=== PATIENT | female | born 1990 | race Caucasian/White ===

== ENCOUNTER 2017-01-14 10:05 | Observation (INO) | payer OTHER ==
[2017-01-14] MEDS ORDERED: Lidocaine 1% w/Epinephrine 1:200K 30 ML VIAL ONE (10:26)
[2017-01-14] MEDS ORDERED: Lorazepam 2 MG/ML VIAL ONE (11:49)
[2017-01-14] MEDS ORDERED: Acetaminophen 500 MG TAB ONE (11:50)
[2017-01-14] MEDS ORDERED: Metoclopramide HCl 10 MG/2 ML VIAL ONE (11:50)
[2017-01-14 11:57] LABS: #Basophils 0.1 thou/uL (0.0-0.2); #Eosinphils 0.1 thou/uL (0.0-0.7); #Lymphocytes 1.7 thou/uL (1.20-3.40); #Monocytes 0.5 thou/uL (0.11-0.59); #Neutrophils 6.7 thou/uL (1.40-6.50); %Basophils 0.6 % (0.0-1.0); %Eosinophils 0.8 % (0.0-10.0); %Lymphocytes 18.5 % (21.0-51.0); %Monocytes 5.7 % (0.0-10.0); Hematocrit 38.5 % (36.0-47.0); Mean Platelet Volume 6.6 fL (7.4-10.4)
[2017-01-14 12:10] LABS: CK (CPK) 296 U/L (29-168)
[2017-01-14 12:11] LABS: ALT (SGPT) 27 U/L (8-55); AST (SGOT) 38 U/L (5-34); Acetaminophen Less than 6.0 mcg/mL (10.0-30.0); Alkaline Phosphatase 92 U/L (40-150); Anion Gap 21 mmol/L (10-20); BUN (Urea Nitrogen) 8 mg/dL (7.0-18.7); Bilirubin, Total 0.7 mg/dL (0.2-1.2); Calc. Creatinine Clearance 0 mL/min (70-130); Calcium 8.7 mg/dL (7.8-10.44); Carbon Dioxide 19 mmol/L (22-29); Chloride 100 mmol/L (98-107); Estimated GFR-MDRD Greater than 90; Globulin 2.8 g/dL (2.4-3.5); Protein, Total 6.9 g/dL (6.0-8.3); Salicylate Less than 8.0 mg/dL (15.0-30.0)
[2017-01-14] MEDS ORDERED: Potassium Chloride 20 MEQ TAB ONE (12:41)
[2017-01-14 12:48] LABS: Bilirubin Negative (Negative); Blood, Urine Moderate (Negative); Glucose, Urine (Dipstick) Negative (Negative); Ketone, Urine 15 mg/dL (Negative); Nitrite Negative (Negative); Protein, Urine (Dipstick) Negative (Neg-Trace); Urobilinogen 0.2 mg/dL (0.2-1.0)
[2017-01-14 13:17] LABS: Bacteria/HPF None Seen HPF (None Seen); Hyaline Casts/LPF 0-3 HYALINE CAST LPF (0-3 Hyaline); Squamous Epithelial None Seen HPF (0-3); WBC/HPF 0-3 HPF (0-3)
[2017-01-14 13:28] LABS: Amphetamine Not Detected (NotDetected); Methadone Not Detected (NotDetected); Methamphetamine Not Detected (NotDetected)
[2017-01-14] MEDS ORDERED: Ondansetron HCl/PF 4 MG/2 ML Vial IVP PRN (14:29)
[2017-01-14] MEDS ORDERED: Sodium Chloride 0.65% Nasal 44 ML BOT EA NARE PRN (14:29)
[2017-01-14] MEDS ORDERED: Loperamide HCl 2 MG CAP PO PRN (14:29)
[2017-01-14] MEDS ORDERED: Zolpidem Tartrate 5 MG TAB PO PRN (14:29)
[2017-01-14] MEDS ORDERED: Loratadine 10 MG TAB PO PRN (14:29)
[2017-01-14] MEDS ORDERED: Diabetic Tussin 200 MG/10 ML UDCUP PO PRN (14:29)
[2017-01-14] MEDS ORDERED: Eucerin (Mineral Oil/Petrolatum,White) 30 gm Jar TOP PRN (14:29)
[2017-01-14] MEDS ORDERED: HYDROcodone/Acetaminophen 5/325 mg Tablet PO PRN (14:29)
[2017-01-14] MEDS ORDERED: Mag-Al 1200 mg/1200 mg/30 ML UDCUP PO PRN (14:29)
[2017-01-14] MEDS ORDERED: Acetaminophen 325 MG TAB PO PRN (14:29)
[2017-01-14] MEDS ORDERED: Senokot 8.6 MG TAB PO PRN (14:29)
[2017-01-14] MEDS ORDERED: Ondansetron ODT 4 MG TAB PO PRN (14:29)
[2017-01-14] MEDS ORDERED: Milk Of Magnesia 30 ML UDCUP PO PRN (14:29)
--- NOTE | 2017-01-14 14:37 | HP ---
PRIMARY CARE PHYSICIAN: City call admission. REASON FOR ADMISSION: Hypokalemia and suicidal ideation. HISTORY OF PRESENT ILLNESS: A 26-year-old female who has underlying anxiety and depression who had a lot of stress and she is feeling anxiety and depression. She was not able to handle her stress and that is why she went to bathroom to make some stress relief with cuts. Patient reports that she had new blade and she cut too deep in her right wrist and this was done because of to get relief from the stress, but she was feeling depressed. She was also feeling suicidal when I interviewed her. She was emotional and crying. The patient does report that this is not the first time she did. She has a history of cutting. Patient reports that she has history of seizure and her seizure was about few weeks ago when she was at work. The patient also had MRI done at [address] and she was supposed to see Dr. Barbara Najera, but she has not made any appointment yet. Patient is taking clonazepam and gabapentin. Initially, she was given instruction to take Keppra, but that medicine was making her side effects and that is why she stopped taking Keppra. When she presented to emergency room, she was emotionally labile, crying. She was complaining of headache, dizziness. She was feeling paraesthesia in hand and extremities. The patient was brought to ER by police for medical clearance to go to psych treatment, but ER physician was not able to clear her to go to psych treatment and that is why she decided to keep in hospital for overnight. In the emergency room, workup showed hypokalemia, elevated total CK. At this point, the patient is being admitted to telemetry floor. PAST MEDICAL HISTORY: History of seizure disorder as per report. The patient had EEG in 2016, which was normal. The patient also had MRI done on an outpatient basis at [address] and she is supposed to see neurologist, but she has not made any appointment yet. PAST SURGICAL HISTORY: Reviewed and negative. PAST PSYCHIATRIC HISTORY: Anxiety, depression. The patient does have a history of inpatient psychiatric admission when she was 16. Patient denies any work related stress or family related stress. SOCIAL HISTORY: Patient is smoking 4-5 cigarettes daily. She also drinks alcohol socially. She also abuses marijuana periodically. FAMILY HISTORY: No strong family history of premature coronary artery disease, stroke or cancer. ALLERGIES: No known drug allergies. CURRENT MEDICATIONS: Clonazepam 1 mg b.i.d., gabapentin 300 mg 3 times daily. REVIEW OF SYSTEMS: The following complete review of systems was negative, unless otherwise mentioned in the HPI or below: Constitutional: Weight loss or gain, ability to conduct usual activities. Skin: Rash, itching. Eyes: Double vision, pain. ENT/Mouth: Nose bleeding, neck stiffness, pain, tenderness. Cardiovascular: Palpitations, dyspnea on exertion, orthopnea. Respiratory: Shortness of breath, wheezing, cough, hemoptysis, fever or night sweats. Gastrointestinal: Poor appetite, abdominal pain, heartburn, nausea, vomiting, constipation, or diarrhea. Genitourinary: Urgency, frequency, dysuria, nocturia. Musculoskeletal: Pain, swelling. Neurologic/Psychiatric: Anxiety, depression. Allergy/Immunologic: Skin rash, bleeding tendency. Please see my HPI for pertinent positive and negative. All other review of systems reviewed and negative except as mentioned in the HPI. EMERGENCY ROOM COURSE: The patient was given potassium chloride 40 mEq p.o., magnesium 1 gram, Reglan 10 mg, Tylenol 1 gram, Ativan 1 mg IV push and IV fluid. PHYSICAL EXAMINATION: VITAL SIGNS: Currently, blood pressure 124/90, pulse 136, respiratory rate 18, temperature 98.2, saturation 97% on room air, weight 42.2 kilograms. GENERAL: Patient is currently emotionally labile, but no obvious acute distress. HEAD: Normocephalic, atraumatic. EYES: Pupils round, reactive to light. Extraocular muscle intact. ENT: Oropharynx within normal limits. Moist mucous membranes. No oral lesions. No pharyngeal erythema, no exudate. NECK: Supple. Range of motion is normal. No meningeal signs of irritation. LUNGS: Clear to auscultation without any rhonchi or rales. CARDIAC: S1, S2 regular, tachycardia, no murmur, no gallop, no rub. ABDOMEN: Soft, bowel sounds present, nontender, nondistended. No organomegaly , no mass, no suprapubic tenderness. BACK: Examination unremarkable, no CVA tenderness. EXTREMITIES: Upper extremity, patient does have a wrist cut laceration about 2.6 to 4 cm in length through the dermis. No active bleeding noted and it is covered with dressing. Lower extremity, no edema. Good peripheral pulsation. NEUROLOGIC: The patient is alert, oriented x3. Cranial nerves II-XII intact. Motor and sensation within normal limits. No focal neurological deficit noted. SKIN: No skin rash. PSYCHIATRIC: Anxious affect. SIGNIFICANT LABORATORY DATA AND IMAGIN. CBC: WBC 9.0, hemoglobin 13.1, platelet 264. 2. BMP: Sodium 137, potassium 2.5, chloride 100, carbon dioxide 19, anion gap 21, BUN 8, creatinine 0.77, glucose 125, calcium 8.7. 3. LFT: AST 38, ALT 27, alkaline phosphorus 792, albumin 4.1, CK 296. TSH 1.51. Urinalysis, blood moderate. Urine drug screen positive for cannabinoids. Serum drug screen, alcohol level 25. 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 ASSESSMENT AND PLAN/IMPRESSION: 1. Wrist laceration. This patient tried to cut her wrist with a blade to relieve her stress. She has underlying anxiety and depression. This patient also has previous history of cutting wrist. At this point, this patient will need close monitoring. Patient will need sitter. We will give suicidal precaution. When the patient is medically stable, at that time, patient will need psychiatric facility. 2. Suicidal ideation. We will keep suicide precautions. [facility] will be consulted upon stabilization medically and eventually she will need inpatient psychiatric treatment. 3. Hypokalemia. The patient has received potassium 40 mEq p.o. in the emergency room. We will check magnesium and phosphorus. Patient is also getting magnesium sulfate 1 gram. We will repeat basic metabolic panel tomorrow. We will also give her IV fluid with potassium in it. 4. Sinus tachycardia likely due to anxiety. Underlying dehydration is also a possibility. We will continue with IV fluid. 5. Cannabis abuse. Patient is given healthy lifestyle measure education. The patient is also given education to avoid smoking, alcohol abuse, and cannabinoid abuse. 6. Anion gap acidosis. Patient will get IV fluid and we will repeat basic metabolic panel tomorrow. 7. Mild elevation of CK (rhabdomyolysis). We will continue with IV fluid and will repeat total CK tomorrow. 8. Microscopic hematuria, likely related with elevated total CK. 9. AST more than ALT, that is also related with her alcohol use. 10. Anxiety and depression. The patient will continue clonazepam 1 mg twice daily, gabapentin 300 mg three times daily. 11. History of seizure disorder, presumed. At this point, patient will follow up with Neurology as an outpatient basis. 12. Deep venous thrombosis prophylaxis not needed because we are expecting discharge in 24 hours. 13. Gastrointestinal prophylaxis, Pepcid 20 mg p.o. b.i.d. 14. Code status: The patient is FULL CODE. Patient does not have any surrogate decision maker. DISPOSITION AND PLAN: Based on clinical course. MTDD
[2017-01-14] MEDS: D5 0.9% NS w/ 20 mEq KCl 1,000 ML IV SCH ×2 (14:57→16:26)
[2017-01-14] MEDS ORDERED: Gabapentin 300 MG CAP PO SCH (15:00)
[2017-01-14 16:09] VITALS: BMI 22.0
[2017-01-14] MEDS: CLONAZEPAM 1 MG PO PRN (18:17)
[2017-01-14] MEDS: Gabapentin 300 MG CAP PO SCH (20:43)
[2017-01-14] MEDS: Famotidine 20 MG TAB PO SCH (20:43)
[2017-01-14] MEDS ORDERED: clonazePAM 1 MG TAB PO SCH (21:00)
[2017-01-14] MEDS: Lorazepam 1 MG TAB PO PRN (23:14)
[2017-01-15 00:59] LABS: Troponin I Less than 0.010 ng/mL (< 0.028)
[2017-01-15] MEDS: CLONAZEPAM 1 MG PO PRN ×2 (01:21→10:39)
[2017-01-15] MEDS: D5 0.9% NS w/ 20 mEq KCl 1,000 ML IV SCH ×2 (02:14→10:23)
[2017-01-15 05:43] LABS: Anion Gap 13 mmol/L (10-20); BUN (Urea Nitrogen) 5 mg/dL (7.0-18.7); CK (CPK) 229 U/L (29-168); Calc. Creatinine Clearance 100 mL/min (70-130); Calcium 7.9 mg/dL (7.8-10.44); Carbon Dioxide 19 mmol/L (22-29); Chloride 113 mmol/L (98-107); Estimated GFR-MDRD Greater than 90
[2017-01-15 06:04] LABS: Band 1 % (5-11); Hematocrit 32.3 % (36.0-47.0); Mean Platelet Volume 6.4 fL (7.4-10.4); Neutrophil 28 % (42-75); Red Blood Cell (RBC) Count 3.34 mill/uL (4.20-5.40); White Blood Cell (WBC) Count 6.9 thou/uL (4.8-10.8)
[2017-01-15] MEDS: Lorazepam 1 MG TAB PO PRN ×2 (07:39→14:09)
[2017-01-15] MEDS: Gabapentin 300 MG CAP PO SCH (09:03)
[2017-01-15] MEDS: Famotidine 20 MG TAB PO SCH (09:05)
[2017-01-15] MEDS ORDERED: clonazePAM 1 MG TAB PO PRN (11:19)
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
[2017-01-15 15:27] VITALS: BP 146/108; TEMP 98.3
--- NOTE | 2017-01-16 10:00 | EKG ---
Test Reason : STAT Blood Pressure : / mmHG Vent. Rate : 076 BPM Atrial Rate : 090 BPM P-R Int : 000 ms QRS Dur : 066 ms QT Int : 386 ms P-R-T Axes : 000 073 054 degrees QTc Int : 434 ms Sinus rhythm Low voltage QRS Abnormal ECG No previous ECGs available Confirmed by YUE WATERMAN ([id number]) on 01/16/2017 10:00:10 AM Referred By: MIKEY Confirmed By:YUE WATERMAN
== END 2017-01-15 17:31 | disposition short-term general hospital (02) ==
LOC: ERS 10:05 → 2SE 14:27
PROVIDERS: ADMIT Internal Medicine; ATTEND Internal Medicine
DX: T14.91 Suicide attempt (principal); F41.9 Anxiety disorder, unspecified; D62 Acute posthemorrhagic anemia; F32.9 Major depressive disorder, single episode, unspecified; R45.86 Emotional lability; R20.9 Unspecified disturbances of skin sensation; R51 Headache; R42 Dizziness and giddiness; R74.8 Abnormal levels of other serum enzymes; F17.210 Nicotine dependence, cigarettes, uncomplicated; F12.10 Cannabis abuse, uncomplicated; R00.0 Tachycardia, unspecified; E87.2 Acidosis; R31.29 Other microscopic hematuria; S61.511A Laceration without foreign body of right wrist, initial encounter; X78.8XXA Intentional self-harm by other sharp object, initial encounter; Y92.89 Other specified places as the place of occurrence of the external cause; Z72.89 Other problems related to lifestyle; Z91.5 Personal history of self-harm
CPT/HCPCS: 12002; 36415; 80048; 80053; 80306; 80307; 81003; 81015; 81025; 82550; 82553; 84443; 84484; 85025; 93005; 93010; 96361; 96374; 96375; G0378; J2060; J2765; J3475; J7050